=== PATIENT | male | born 1965 | race Caucasian/White ===

== ENCOUNTER 2018-05-31 02:20 | Emergency (ER) | payer BC ==
[2018-05-31 03:09] VITALS: TEMP 97.8
[2018-05-31] MEDS ORDERED: LIDOCAINE 5% PATCH TOPICAL STA (03:13)
[2018-05-31] MEDS ORDERED: KETOROLAC 30 MG/ML 1 ML VIAL IM STA (03:13)
--- NOTE | 2018-05-31 03:35 | ED ---
Back Pain HPI - General Chief Complaint: Back Pain/Injury Stated Complaint: back pain Time Seen by Provider: 05/31/18 02:53 Source: patient Limitations: no limitations - History of Present Illness Initial Comments: This is a 52-year-old male with a history of lower back discomfort in the past who presents emergency department after "throwing his back". He states that this happened a number of days ago. He states he was doing some exercises and then fell to the ground from about 3 feet above the ground. He states he landed on his buttock region and since then he feels like his back has "locked up". He states that the pain seems to be made worse when he has been still for a period of time and then starts to move. He states it's worse with bending and twisting. After a while the pain seems to improve with movement however will recur. He is currently on a Medrol Dosepak and also Flexeril which she has been compliant with however he states that the pain became unbearable this evening so he came to the emergency department. He denies any numbness, [place] , or weakness in her lower extremities. No saddle anesthesia. No bowel or bladder dysfunction. He denies any other acute complaints. - Related Data Home Medications Medication Instructions Recorded Confirmed Cyclobenzaprine [Flexeril] 10 mg PO TID 05/31/18 05/31/18 methylPREDNISolone Dose Pack 4 mg PO DIRECTED 05/31/18 05/31/18 [Medrol Dose Pack] Allergies Allergy/AdvReac Type Severity Reaction Status Date / Time No Known Allergies Allergy Verified 05/31/18 02:39 Review of Systems ROS Statement: Those systems with pertinent positive or pertinent negative responses have been documented in the HPI. ROS Other: All systems not noted in ROS Statement are negative. Past Medical History Past Medical History: No Reported History History of Any Multi-Drug Resistant Organisms: None Reported Past Surgical History: Appendectomy Past Psychological History: No Psychological Hx Reported Smoking Status: Never smoker Past Alcohol Use History: Occasional Past Drug Use History: None Reported General Exam - General Exam Comments Initial Comments: Constitutional: Awake alert Appears comfortable Head: Normocephalic atraumatic Eyes: no conjunctival injection No scleral icterus EOMI Neck: No JVD Supple Heart: Regular rate rhythm normal S1-S2 no murmurs Lungs: Clear to auscultation bilaterally No wheezing No rales Abdomen: Soft nondistended nontender Extremities: Non edematous DP pulses intact Radial pulses intact, there is mild tenderness to palpation along the entire lower lumbar region. No midline tenderness however. Neuro: A&Ox3, 5 out of 5 strength in lower extremities bilaterally, no ataxia with gait No focal neurologic deficits Psych: Appropriate mood and affect Limitations: no limitations Course Vital Signs 05/31/18 05/31/18 02:35 04:46 Temperature 97.8 F 97.8 F Pulse Rate 58 L 75 Respiratory 20 18 Rate Blood Pressure 159/98 136/98 O2 Sat by Pulse 97 98 Oximetry Medical Decision Making - Medical Decision Making This 52-year-old male who presents emergency department for lower back pain. The patient x-ray performed that showed degenerative changes however no acute findings. The patient was proved after Toradol and Lidoderm patch and requested to go home. Was instructed to continue with his steroids, Flexeril, Motrin and Tylenol. 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 He needs to follow closely with his primary doctor and may benefit from physical therapy in the future. Does not improve. Can return if he develops any worsening pain, numbness, tingling, or weakness in his extremities or any other concerning symptoms. All questions answered. Disposition Clinical Impression: Lumbar strain Disposition: HOME SELF-CARE Condition: Stable Instructions (If sedation given, give patient instructions): Acute Low Back Pain (ED) Is patient prescribed a controlled substance at d/c from ED?: No Referrals: Latricia Babcock MD [Primary Care Provider] - 1-2 days
--- NOTE | 2018-05-31 04:28 | XR ---
EXAM: XR Lumbar Spine, 2 or 3 Views CLINICAL HISTORY: ITS.REASON XR Reason: Low back pain TECHNIQUE: Frontal and lateral views of the lumbar spine. COMPARISON: No relevant prior studies available. FINDINGS: Vertebrae: Unremarkable. No acute fracture. Normal alignment. Disc spaces: Mild narrowing at L5-S1. Soft tissues: Unremarkable. IMPRESSION: No acute findings. Mild degenerative changes at L5-S1.
[2018-05-31 04:47] VITALS: BP 136/98; PULSE 75; RESP 18
== END 2018-05-31 04:47 | disposition home or self-care (01) ==
LOC: EC 02:20
DX: S39.012A Strain of muscle, fascia and tendon of lower back, initial encounter (principal); W17.89XA Other fall from one level to another, initial encounter; Y93.B9 Activity, other involving muscle strengthening exercises
CPT/HCPCS: 72100; 96372; 99283